=== PATIENT | male | born 1965 | race Caucasian/White ===

== ENCOUNTER 2022-07-03 02:14 | Outpatient (RCR) | payer BC, SELFPAY ==
[2022-06-12] MEDS: Normal Saline Flush 10 ML SYR IVP (10:24)
[2022-06-12 10:38] LABS: Abs Immature Grans 0.07 10^3/uL (0.0-0.06); Absolute Basophil Count 0.04 10^3/uL (0.0-0.2); Absolute Eosinophil Count 0.25 10^3/uL (0.0-0.7); Absolute Lymphocyte Count 0.48 10^3/uL (1.2-3.4); Absolute Monocyte Count 1.06 10^3/uL (0.1-0.8); Absolute Neutrophil Count 11.41 10^3/uL (1.2-6.7); Basophils % 0.3; Eosinophils % 1.9; HCT 37.5 % (40.0-50.0); HGB 12.3 g/dL (13.5-17.5); Immature Grans % 0.5; Lymphocytes % 3.6; MCH 28.7 pg (27.0-33.0); MCHC 32.8 % (32.0-36.0); MCV 88 fL (80-95); MPV 9.1 fL (8.0-11.0); Neutrophils % 85.7; Platelet Count 307 10^3/uL (130-400); RBC 4.28 10^6/uL (4.36-5.78); RDW 13.9 % (11.8-14.1); RDW-SD 44.3 fL; WBC 13.31 10^3/uL (4.4-10.8)
[2022-06-12 10:54] LABS: ALT 48 U/L (16-63); AST 25 U/L (15-37); Albumin 2.9 g/dL (3.4-5.0); Alkaline Phosphatase 104 U/L (46-116); Anion Gap 7.4 mmol/L (3-11); BUN 13 mg/dL (7-18); Bilirubin, Total 0.7 mg/dL (0.2-1.0); CO2 32.6 mmol/L (21.0-32.0); CREATININE 0.7 mg/dL (0.70-1.30); Chloride 91 mmol/L (98-107); Estimated GFR 107.47 (mL/min/1.73m2); Glucose 114 mg/dL (74-106); Magnesium 1.8 mg/dL (1.8-2.4); Potassium 3.7 mmol/L (3.5-5.1); Sodium 131 mmol/L (136-145); Total Protein 7.4 g/dL (6.4-8.2)
[2022-06-19] MEDS: Normal Saline Flush 10 ML SYR IVP (09:19)
[2022-06-19 09:21] LABS: Abs Immature Grans 0.12 10^3/uL (0.0-0.06); Absolute Basophil Count 0.02 10^3/uL (0.0-0.2); Absolute Eosinophil Count 0.02 10^3/uL (0.0-0.7); Basophils % 0.2; Eosinophils % 0.2; HCT 38.2 % (40.0-50.0); HGB 12.7 g/dL (13.5-17.5); Immature Grans % 1.1; Lymphocytes % 2.1; MCH 28.7 pg (27.0-33.0); MCHC 33.2 % (32.0-36.0); MCV 86 fL (80-95); Monocytes % 4.5; Neutrophils % 91.9; Platelet Count 301 10^3/uL (130-400); RBC 4.43 10^6/uL (4.36-5.78); RDW 14.3 % (11.8-14.1); RDW-SD 45.2 fL; WBC 11.21 10^3/uL (4.4-10.8)
[2022-06-19 09:22] LABS: Absolute Lymphocyte Count 0.24 10^3/uL (1.2-3.4)
[2022-06-19 09:38] LABS: ALT 114 U/L (16-63); AST 51 U/L (15-37); Albumin 2.7 g/dL (3.4-5.0); Alkaline Phosphatase 113 U/L (46-116); Anion Gap 8.3 mmol/L (3-11); BUN 15 mg/dL (7-18); Bilirubin, Total 0.4 mg/dL (0.2-1.0); CO2 30.7 mmol/L (21.0-32.0); CREATININE 0.8 mg/dL (0.70-1.30); Calcium 8.9 mg/dL (8.5-10.1); Chloride 95 mmol/L (98-107); Estimated GFR 103.22 (mL/min/1.73m2); Glucose 179 mg/dL (74-106); Magnesium 1.9 mg/dL (1.8-2.4); Potassium 4.1 mmol/L (3.5-5.1); Sodium 134 mmol/L (136-145); Total Protein 7.5 g/dL (6.4-8.2)
[2022-06-26] MEDS: Normal Saline Flush 10 ML SYR IVP (12:15)
[2022-06-26 12:35] LABS: Abs Immature Grans 0.27 10^3/uL (0.0-0.06); Absolute Basophil Count 0.02 10^3/uL (0.0-0.2); Absolute Eosinophil Count 0.01 10^3/uL (0.0-0.7); Absolute Monocyte Count 0.42 10^3/uL (0.1-0.8); Absolute Neutrophil Count 5.97 10^3/uL (1.2-6.7); Basophils % 0.3; Eosinophils % 0.1; Immature Grans % 3.9; Lymphocytes % 2.9; MCH 28.4 pg (27.0-33.0); MCHC 32.5 % (32.0-36.0); MCV 88 fL (80-95); MPV 8.7 fL (8.0-11.0); Monocytes % 6.1; Neutrophils % 86.7; Platelet Count 243 10^3/uL (130-400); RBC 4.57 10^6/uL (4.36-5.78); RDW 15.3 % (11.8-14.1); RDW-SD 47.9 fL; WBC 6.89 10^3/uL (4.4-10.8)
[2022-06-26 12:53] LABS: ALT 65 U/L (16-63); AST 20 U/L (15-37); Albumin 2.9 g/dL (3.4-5.0); Alkaline Phosphatase 102 U/L (46-116); Anion Gap 7.3 mmol/L (3-11); BUN 14 mg/dL (7-18); Bilirubin, Total 0.4 mg/dL (0.2-1.0); CO2 32.7 mmol/L (21.0-32.0); CREATININE 0.6 mg/dL (0.70-1.30); Calcium 8.8 mg/dL (8.5-10.1); Chloride 95 mmol/L (98-107); Estimated GFR 112.59 (mL/min/1.73m2); Glucose 105 mg/dL (74-106); Magnesium 1.9 mg/dL (1.8-2.4); Potassium 4.1 mmol/L (3.5-5.1); Sodium 135 mmol/L (136-145); Total Protein 7.3 g/dL (6.4-8.2)
[2022-07-03] MEDS: Normal Saline Flush 10 ML SYR IVP (09:18)
[2022-07-03 09:34] LABS: Abs Immature Grans 0.06 10^3/uL (0.0-0.06); Absolute Basophil Count 0.02 10^3/uL (0.0-0.2); Absolute Eosinophil Count 0.05 10^3/uL (0.0-0.7); Absolute Lymphocyte Count 0.19 10^3/uL (1.2-3.4); Absolute Monocyte Count 0.24 10^3/uL (0.1-0.8); Absolute Neutrophil Count 4.52 10^3/uL (1.2-6.7); Basophils % 0.4; HCT 40.3 % (40.0-50.0); HGB 13.4 g/dL (13.5-17.5); Immature Grans % 1.2; Lymphocytes % 3.7; MCH 28.8 pg (27.0-33.0); MCHC 33.3 % (32.0-36.0); MCV 87 fL (80-95); MPV 9.2 fL (8.0-11.0); Monocytes % 4.7; RBC 4.66 10^6/uL (4.36-5.78); RDW 15.5 % (11.8-14.1); RDW-SD 48.7 fL; WBC 5.08 10^3/uL (4.4-10.8)
[2022-07-03 09:50] LABS: ALT 44 U/L (16-63); AST 19 U/L (15-37); Albumin 2.8 g/dL (3.4-5.0); Alkaline Phosphatase 103 U/L (46-116); Anion Gap 5.8 mmol/L (3-11); BUN 15 mg/dL (7-18); Bilirubin, Total 0.6 mg/dL (0.2-1.0); CO2 33.2 mmol/L (21.0-32.0); CREATININE 0.7 mg/dL (0.70-1.30); Calcium 8.6 mg/dL (8.5-10.1); Chloride 94 mmol/L (98-107); Estimated GFR 107.47 (mL/min/1.73m2); Glucose 113 mg/dL (74-106); Magnesium 1.9 mg/dL (1.8-2.4); Potassium 3.5 mmol/L (3.5-5.1); Sodium 133 mmol/L (136-145); Total Protein 6.7 g/dL (6.4-8.2)
[2022-07-03 10:04] LABS: Platelet Count 96 10^3/uL (130-400)
== END 2022-07-07 23:59 | disposition home or self-care (01) ==
LOC: INF 02:14
PROVIDERS: Nurse Practitioner Adult Health; PCP Physician Assistant Medical; Visit Provider Internal Medicine Hematology & Oncology
DX: Z45.2 Encounter for adjustment and management of vascular access device (principal); C13.2 Malignant neoplasm of posterior wall of hypopharynx
CPT/HCPCS: 36591; 80053; 83735; 85025

== ENCOUNTER 2022-07-31 12:35 | Outpatient (RCR) | payer BC, SELFPAY ==
[2022-07-10] MEDS: Normal Saline Flush 10 ML SYR IVP (09:42)
[2022-07-10 09:50] LABS: Abs Immature Grans 0.01 10^3/uL (0.0-0.06); HCT 37.1 % (40.0-50.0); HGB 12.7 g/dL (13.5-17.5); MCH 29.7 pg (27.0-33.0); MCHC 34.2 % (32.0-36.0); MCV 87 fL (80-95); MPV 7.9 fL (8.0-11.0); Platelet Count 114 10^3/uL (130-400); RBC 4.28 10^6/uL (4.36-5.78); RDW 15.9 % (11.8-14.1); RDW-SD 48.2 fL
[2022-07-10 10:14] LABS: ALT 63 U/L (16-63); AST 47 U/L (15-37); Albumin 2.6 g/dL (3.4-5.0); Alkaline Phosphatase 105 U/L (46-116); Anion Gap 6.6 mmol/L (3-11); BUN 15 mg/dL (7-18); Bilirubin, Total 0.4 mg/dL (0.2-1.0); CO2 31.4 mmol/L (21.0-32.0); CREATININE 0.6 mg/dL (0.70-1.30); Calcium 8.5 mg/dL (8.5-10.1); Chloride 97 mmol/L (98-107); Estimated GFR 112.59 (mL/min/1.73m2); Glucose 131 mg/dL (74-106); Magnesium 1.6 mg/dL (1.8-2.4); Potassium 3.8 mmol/L (3.5-5.1); Sodium 135 mmol/L (136-145); Total Protein 6.4 g/dL (6.4-8.2)
[2022-07-10 10:19] LABS: Absolute Neutrophil Count 0.98 10^3/uL (1.2-6.7); Bands % 8
[2022-07-10 10:20] LABS: Absolute Eosinophil Count 0.02 10^3/uL (0.0-0.7); Diff Comment Manual Differential
[2022-07-10 10:21] LABS: Polychromasia Present
[2022-07-10 10:28] LABS: WBC 1.21 10^3/uL (4.4-10.8)
[2022-07-17] MEDS: Normal Saline Flush 10 ML SYR IVP (12:18)
[2022-07-17 12:34] LABS: Absolute Monocyte Count 0.28 10^3/uL (0.1-0.8); HCT 34.2 % (40.0-50.0); HGB 11.2 g/dL (13.5-17.5); MCH 29.2 pg (27.0-33.0); MCHC 32.7 % (32.0-36.0); MCV 89 fL (80-95); Platelet Count 266 10^3/uL (130-400); RBC 3.83 10^6/uL (4.36-5.78); RDW 16.9 % (11.8-14.1); RDW-SD 53.6 fL; WBC 3.08 10^3/uL (4.4-10.8)
[2022-07-17 12:47] LABS: Absolute Eosinophil Count 0.03 10^3/uL (0.0-0.7); Absolute Lymphocyte Count 0.31 10^3/uL (1.2-3.4); Absolute Neutrophil Count 2.25 10^3/uL (1.2-6.7); Atypical Lymphocytes % 1; Bands % 4; Metamyelocytes % 5; Myelocytes % 2
[2022-07-17 12:48] LABS: Diff Comment Manual Differential; RBC Morphology Normal
[2022-07-17 12:49] LABS: ALT 53 U/L (16-63); AST 27 U/L (15-37); Albumin 2.1 g/dL (3.4-5.0); Alkaline Phosphatase 107 U/L (46-116); Anion Gap 5.1 mmol/L (3-11); BUN 12 mg/dL (7-18); Bilirubin, Total 0.2 mg/dL (0.2-1.0); CO2 34.9 mmol/L (21.0-32.0); CREATININE 0.6 mg/dL (0.70-1.30); Chloride 95 mmol/L (98-107); Estimated GFR 112.59 (mL/min/1.73m2); Glucose 113 mg/dL (74-106); Magnesium 1.9 mg/dL (1.8-2.4); Potassium 3.7 mmol/L (3.5-5.1); Sodium 135 mmol/L (136-145); Total Protein 6.9 g/dL (6.4-8.2)
[2022-07-24] MEDS: Normal Saline Flush 10 ML SYR IVP (10:09)
[2022-07-24 10:21] LABS: Abs Immature Grans 0.65 10^3/uL (0.0-0.06); HGB 11.7 g/dL (13.5-17.5); MCH 29.8 pg (27.0-33.0); MCHC 34.4 % (32.0-36.0); MCV 87 fL (80-95); MPV 8.7 fL (8.0-11.0); Platelet Count 373 10^3/uL (130-400); RBC 3.93 10^6/uL (4.36-5.78); RDW 16.7 % (11.8-14.1); RDW-SD 50.8 fL; WBC 7.48 10^3/uL (4.4-10.8)
[2022-07-24 10:34] LABS: ALT 52 U/L (16-63); AST 28 U/L (15-37); Albumin 2.9 g/dL (3.4-5.0); Alkaline Phosphatase 113 U/L (46-116); Anion Gap 7.4 mmol/L (3-11); BUN 18 mg/dL (7-18); Bilirubin, Total 0.3 mg/dL (0.2-1.0); CO2 31.6 mmol/L (21.0-32.0); CREATININE 0.8 mg/dL (0.70-1.30); Calcium 8.6 mg/dL (8.5-10.1); Chloride 97 mmol/L (98-107); Estimated GFR 103.22 (mL/min/1.73m2); Glucose 122 mg/dL (74-106); Magnesium 1.9 mg/dL (1.8-2.4); Potassium 3.5 mmol/L (3.5-5.1); Sodium 136 mmol/L (136-145); Total Protein 6.8 g/dL (6.4-8.2)
[2022-07-24 10:37] LABS: Absolute Monocyte Count 0.15 10^3/uL (0.1-0.8); Absolute Neutrophil Count 6.28 10^3/uL (1.2-6.7); Atypical Lymphocytes % 7; Bands % 1; Diff Comment Manual Differential; Metamyelocytes % 1; Myelocytes % 1; RBC Morphology Normal
[2022-07-31] MEDS: Normal Saline Flush 10 ML SYR IVP (12:42)
[2022-07-31] MEDS: Heparin 500 UNITS/5 ML SYRINGE IV (12:43)
[2022-07-31 12:49] LABS: Abs Immature Grans 0.07 10^3/uL (0.0-0.06); Absolute Basophil Count 0.02 10^3/uL (0.0-0.2); Absolute Lymphocyte Count 0.14 10^3/uL (1.2-3.4); Absolute Monocyte Count 0.47 10^3/uL (0.1-0.8); Absolute Neutrophil Count 5.14 10^3/uL (1.2-6.7); Basophils % 0.3; HCT 33.6 % (40.0-50.0); HGB 11.1 g/dL (13.5-17.5); Immature Grans % 1.2; Lymphocytes % 2.4; MCH 29.6 pg (27.0-33.0); MCV 90 fL (80-95); MPV 9.1 fL (8.0-11.0); Neutrophils % 88.1; Nucleated RBC 0.5 % (0.0-0.3); Platelet Count 210 10^3/uL (130-400); RBC 3.75 10^6/uL (4.36-5.78); RDW 18.6 % (11.8-14.1); RDW-SD 54.1 fL; WBC 5.84 10^3/uL (4.4-10.8)
[2022-07-31 13:14] LABS: ALT 43 U/L (16-63); AST 25 U/L (15-37); Albumin 2.9 g/dL (3.4-5.0); Alkaline Phosphatase 109 U/L (46-116); Anion Gap 3.6 mmol/L (3-11); BUN 18 mg/dL (7-18); Bilirubin, Total 0.6 mg/dL (0.2-1.0); CO2 33.4 mmol/L (21.0-32.0); CREATININE 0.6 mg/dL (0.70-1.30); Chloride 100 mmol/L (98-107); Estimated GFR 112.59 (mL/min/1.73m2); Glucose 110 mg/dL (74-106); Magnesium 1.8 mg/dL (1.8-2.4); Potassium 3.4 mmol/L (3.5-5.1); Sodium 137 mmol/L (136-145); Total Protein 6.7 g/dL (6.4-8.2)
== END 2022-08-06 23:59 | disposition home or self-care (01) ==
LOC: INF 12:35
PROVIDERS: Nurse Practitioner Adult Health; PCP Physician Assistant Medical; Visit Provider Internal Medicine Hematology & Oncology
DX: Z45.2 Encounter for adjustment and management of vascular access device (principal); C13.2 Malignant neoplasm of posterior wall of hypopharynx
CPT/HCPCS: 36591; 80053; 83735; 85025

== ENCOUNTER 2022-08-21 13:40 | Outpatient (RCR) | payer BC, SELFPAY ==
[2022-08-09] MEDS: Heparin 500 UNITS/5 ML SYRINGE ×2 (14:45→14:50)
[2022-08-09 15:22] LABS: Abs Immature Grans 0.02 10^3/uL (0.0-0.06); Absolute Basophil Count 0.01 10^3/uL (0.0-0.2); Absolute Eosinophil Count 0.04 10^3/uL (0.0-0.7); Absolute Lymphocyte Count 0.49 10^3/uL (1.2-3.4); Absolute Monocyte Count 0.29 10^3/uL (0.1-0.8); Absolute Neutrophil Count 1.79 10^3/uL (1.2-6.7); Basophils % 0.4; Eosinophils % 1.5; HCT 31.5 % (40.0-50.0); HGB 10.4 g/dL (13.5-17.5); Immature Grans % 0.8; Lymphocytes % 18.6; MCH 29.8 pg (27.0-33.0); MCV 90 fL (80-95); MPV 8.9 fL (8.0-11.0); Neutrophils % 67.7; Platelet Count 140 10^3/uL (130-400); RBC 3.49 10^6/uL (4.36-5.78); RDW 19.9 % (11.8-14.1); RDW-SD 66.6 fL; WBC 2.64 10^3/uL (4.4-10.8)
[2022-08-09 15:36] LABS: ALT 37 U/L (16-63); AST 25 U/L (15-37); Albumin 2.3 g/dL (3.4-5.0); Alkaline Phosphatase 81 U/L (46-116); Anion Gap 4.9 mmol/L (3-11); BUN 16 mg/dL (7-18); Bilirubin, Total 0.8 mg/dL (0.2-1.0); CO2 38.1 mmol/L (21.0-32.0); CREATININE 0.6 mg/dL (0.70-1.30); Calcium 8.2 mg/dL (8.5-10.1); Chloride 99 mmol/L (98-107); Estimated GFR 112.59 (mL/min/1.73m2); Glucose 95 mg/dL (74-106); Sodium 142 mmol/L (136-145); Total Protein 6.2 g/dL (6.4-8.2)
[2022-08-09 15:59] LABS: Potassium 2.3 mmol/L (3.5-5.1)
[2022-08-11 09:30] LABS: Prealbumin 12 mg/dL (20-40)
[2022-08-21] MEDS: Heparin 500 UNITS/5 ML SYRINGE (13:47)
[2022-08-21] MEDS: Normal Saline Flush 10 ML SYR IVP (13:47)
[2022-08-21 13:55] LABS: Abs Immature Grans 0.44 10^3/uL (0.0-0.06); Absolute Basophil Count 0.08 10^3/uL (0.0-0.2); Absolute Eosinophil Count 0.01 10^3/uL (0.0-0.7); Absolute Lymphocyte Count 1.37 10^3/uL (1.2-3.4); Absolute Monocyte Count 0.99 10^3/uL (0.1-0.8); Absolute Neutrophil Count 4.85 10^3/uL (1.2-6.7); Eosinophils % 0.1; HCT 32.3 % (40.0-50.0); HGB 10.1 g/dL (13.5-17.5); Immature Grans % 5.7; Lymphocytes % 17.7; MCH 29.2 pg (27.0-33.0); MCHC 31.3 % (32.0-36.0); MCV 93 fL (80-95); MPV 8.8 fL (8.0-11.0); Monocytes % 12.8; Neutrophils % 62.7; RBC 3.46 10^6/uL (4.36-5.78); RDW 20.6 % (11.8-14.1); RDW-SD 70.2 fL; WBC 7.74 10^3/uL (4.4-10.8)
[2022-08-21 14:09] LABS: ALT 28 U/L (16-63); AST 24 U/L (15-37); Albumin 2.6 g/dL (3.4-5.0); Alkaline Phosphatase 98 U/L (46-116); Anion Gap 4.4 mmol/L (3-11); BUN 21 mg/dL (7-18); Bilirubin, Total 0.3 mg/dL (0.2-1.0); CO2 40.6 mmol/L (21.0-32.0); CREATININE 0.8 mg/dL (0.70-1.30); Calcium 9.1 mg/dL (8.5-10.1); Chloride 94 mmol/L (98-107); Estimated GFR 103.22 (mL/min/1.73m2); Glucose 95 mg/dL (74-106); Sodium 139 mmol/L (136-145); Total Protein 7.1 g/dL (6.4-8.2)
[2022-08-21 14:10] LABS: Platelet Count 474 10^3/uL (130-400)
[2022-08-21 14:11] LABS: Anisocytosis 2+; Diff Comment Agrees w/ Instrument; Polychromasia Present
[2022-08-21 14:34] LABS: Potassium 2.8 mmol/L (3.5-5.1)
== END 2022-09-06 23:59 | disposition home or self-care (01) ==
LOC: INF 13:40
PROVIDERS: PCP Physician Assistant Medical; Visit Provider Internal Medicine Hematology & Oncology
DX: Z45.2 Encounter for adjustment and management of vascular access device (principal); C13.2 Malignant neoplasm of posterior wall of hypopharynx
CPT/HCPCS: 36591; 80053; 83735; 84134; 85025

== ENCOUNTER 2022-09-27 09:00 | Outpatient (RCR) | payer BC, SELFPAY ==
[2022-09-13] MEDS: Heparin 500 UNITS/5 ML SYRINGE IV (09:16)
[2022-09-13] MEDS: Normal Saline Flush 10 ML SYR IVP (09:16)
[2022-09-13 09:45] LABS: ALT 25 U/L (16-63); AST 19 U/L (15-37); Albumin 3.1 g/dL (3.4-5.0); Alkaline Phosphatase 80 U/L (46-116); BUN 16 mg/dL (7-18); Bilirubin, Total 0.6 mg/dL (0.2-1.0); CREATININE 0.9 mg/dL (0.70-1.30); Calcium 8.8 mg/dL (8.5-10.1); Chloride 93 mmol/L (98-107); Estimated GFR 99.62 (mL/min/1.73m2); Glucose 114 mg/dL (74-106); Potassium 3.4 mmol/L (3.5-5.1); Sodium 133 mmol/L (136-145)
[2022-09-18] MEDS: Normal Saline Flush 10 ML SYR IVP (10:39)
[2022-09-18] MEDS: Heparin 500 UNITS/5 ML SYRINGE IV (10:39)
[2022-09-18 11:04] LABS: ALT 42 U/L (16-63); AST 36 U/L (15-37); Albumin 3.2 g/dL (3.4-5.0); Alkaline Phosphatase 79 U/L (46-116); Anion Gap 4.2 mmol/L (3-11); BUN 12 mg/dL (7-18); Bilirubin, Total 0.5 mg/dL (0.2-1.0); CO2 35.8 mmol/L (21.0-32.0); CREATININE 0.7 mg/dL (0.70-1.30); Calcium 8.9 mg/dL (8.5-10.1); Chloride 95 mmol/L (98-107); Estimated GFR 107.47 (mL/min/1.73m2); Glucose 118 mg/dL (74-106); Sodium 135 mmol/L (136-145); Total Protein 6.8 g/dL (6.4-8.2)
[2022-09-27] MEDS: Normal Saline Flush 10 ML SYR IVP (08:46)
[2022-09-27] MEDS: Heparin 500 UNITS/5 ML SYRINGE IV (08:46)
[2022-09-27 08:56] LABS: Abs Immature Grans 0.06 10^3/uL (0.0-0.06); Absolute Basophil Count 0.02 10^3/uL (0.0-0.2); Absolute Eosinophil Count 0.03 10^3/uL (0.0-0.7); Absolute Lymphocyte Count 0.38 10^3/uL (1.2-3.4); Absolute Monocyte Count 0.49 10^3/uL (0.1-0.8); Absolute Neutrophil Count 10.21 10^3/uL (1.2-6.7); Basophils % 0.2; Eosinophils % 0.3; HCT 35.5 % (40.0-50.0); HGB 11.3 g/dL (13.5-17.5); Immature Grans % 0.5; Lymphocytes % 3.4; MCH 30.4 pg (27.0-33.0); MCHC 31.8 % (32.0-36.0); MCV 95 fL (80-95); MPV 9.1 fL (8.0-11.0); Monocytes % 4.4; Neutrophils % 91.2; Platelet Count 175 10^3/uL (130-400); RBC 3.72 10^6/uL (4.36-5.78); RDW 17.3 % (11.8-14.1); RDW-SD 60.9 fL; WBC 11.19 10^3/uL (4.4-10.8)
[2022-09-27 09:25] LABS: ALT 22 U/L (16-63); AST 14 U/L (15-37); Albumin 2.9 g/dL (3.4-5.0); Alkaline Phosphatase 69 U/L (46-116); Anion Gap 6.2 mmol/L (3-11); BUN 13 mg/dL (7-18); Bilirubin, Total 0.7 mg/dL (0.2-1.0); CO2 30.8 mmol/L (21.0-32.0); CREATININE 0.6 mg/dL (0.70-1.30); Chloride 98 mmol/L (98-107); Estimated GFR 112.59 (mL/min/1.73m2); Glucose 121 mg/dL (74-106); Magnesium 1.8 mg/dL (1.8-2.4); Potassium 3.6 mmol/L (3.5-5.1); Sodium 135 mmol/L (136-145); Total Protein 6.7 g/dL (6.4-8.2)
== END 2022-10-06 23:59 | disposition home or self-care (01) ==
LOC: INF 09:00
PROVIDERS: Nurse Practitioner Adult Health; PCP Physician Assistant Medical; Visit Provider Internal Medicine Hematology & Oncology
DX: Z45.2 Encounter for adjustment and management of vascular access device (principal); C13.2 Malignant neoplasm of posterior wall of hypopharynx
CPT/HCPCS: 36591; 80053; 83735; 85025